=== PATIENT | female | born 1980 | race African-American/Black ===

== ENCOUNTER 2017-06-15 09:49 | Emergency (ER) | payer BC, MEDICAID ==
[2017-06-15] MEDS ORDERED: BUTALB/ACETAMINOPHEN/CAFFEINE 1 TAB EACH PO ONE (10:11)
--- NOTE | 2017-06-15 10:18 | ER Document Report ---
ED Headache - General Chief Complaint: Headache Stated Complaint: HEADACHE/PAIN ON RIGHT SIDE OF FACE Time Seen by Provider: 06/15/17 10:11 TRAVEL OUTSIDE OF THE [place] IN LAST 30 DAYS: No - HPI Patient complains to provider of: Headache Notes: 10 throbbing right-sided headache. Started gradually this morning when she woke up. Patient was at her job today working she felt the pain was too much for her to continue. Denies any focal neuro defect. Denies neck pain, fever, direct trauma to her head. Patient endorses photophobia. Patient has lengthy history of headaches says this feels a one of her classic headaches. Mildly nauseous but denies emesis. - Related Data Allergies/Adverse Reactions: fish oil [Fish Oil] Allergy (Unknown, Verified 06/15/17 10:04) Fish Allergy (Severe, Uncoded 06/15/17 10:04) Hives, swelling Past Medical History - Social History Smoking Status: Never Smoker Chew tobacco use (# tins/day): No Frequency of alcohol use: None Drug Abuse: None Family History: CAD - father, DM - father, Hypertension, Thyroid Disfunction - sister, Other - pacemaker sister Patient has suicidal ideation: No Patient has homicidal ideation: No - Past Medical History Cardiac Medical History: Pulmonary Medical History: Neurological Medical History: Renal/ Medical History: Denies: Hx Peritoneal Dialysis GI Medical History: Musculoskeltal Medical History: Traumatic Medical History: Reports: Hx Pneumothorax Infectious Medical History: Past Surgical History: Reports: Hx Breast Surgery - breast bx, Hx Gynecologic Surgery - tubal. Denies: Hx Pacemaker - Immunizations Immunizations up to date: Yes Hx Diphtheria, Pertussis, Tetanus Vaccination: Yes Review of Systems - Review of Systems Notes: REVIEW OF SYSTEMS: CONSTITUTIONAL: -fevers, -chills EENT: -eye pain, -difficulty swallowing, -nasal congestion CARDIOVASCULAR: -chest pain, -syncope. RESPIRATORY: -cough, -SOB GASTROINTESTINAL: -abdominal pain, -nausea, -vomiting, -diarrhea GENITOURINARY: -dysuria, -hematuria MUSCULOSKELETAL: -back pain, -neck pain SKIN: -rash or skin lesions. HEMATOLOGIC: -easy bruising or bleeding. LYMPHATIC: -swollen, enlarged glands. NEUROLOGICAL: Positive for headache PSYCHIATRIC: -anxiety, -depression. ALL OTHER SYSTEMS REVIEWED AND NEGATIVE. Physical Exam - Notes Notes: PHYSICAL EXAMINATION: GENERAL: Well-appearing, well-nourished and in no acute distress. HEAD: Atraumatic, normocephalic. EYES: Pupils equal round and reactive to light, extraocular movements intact, sclera anicteric, conjunctiva are normal. ENT: nares patent, oropharynx clear without exudates. Moist mucous membranes. NECK: Normal range of motion, supple without lymphadenopathy LUNGS: Breath sounds clear to auscultation bilaterally and equal. No wheezes rales or rhonchi. HEART: Regular rate and rhythm without murmurs ABDOMEN: Soft, nontender, normoactive bowel sounds. No guarding, no rebound. No masses appreciated. EXTREMITIES: Normal range of motion, no pitting or edema. No cyanosis. NEUROLOGICAL: Cranial nerves grossly intact. Normal speech, normal gait. Normal sensory and motor exams. PSYCH: Normal mood, normal affect. SKIN: Warm, Dry, normal turgor, no rashes or lesions noted. Course - Re-evaluation Re-evalutation: 06/15/17 10:25 Well-appearing female, no red flags for headache negative thunderclap, gradual onset appears like a classic headache. No neck tenderness pain no focal neurologic deficits. Will be given analgesia, antiemetics, diphenhydramine. 06/15/17 10:[address], pain-free will be discharged home for Discharge - Discharge Clinical Impression: Headache Qualifiers: Headache type: unspecified Headache chronicity pattern: acute headache Intractability: not intractable Qualified Code(s): R51 - Headache Disposition: HOME, SELF-CARE Instructions: Headache ([facility]) Additional Instructions: See your PCP
[2017-06-15] MEDS ORDERED: METOCLOPRAMIDE HCL INJ/PF 10 MG/2 ML SDV IM ONE (10:23)
[2017-06-15] MEDS ORDERED: DIPHENHYDRAMINE HCL 50 MG CAPSULE PO ONE (10:23)
--- NOTE | 2017-06-15 10:46 | RADIOLOGY REPORT (SQ) ---
EXAM DESCRIPTION: CT HEAD WITHOUT COMPLETED DATE/TIME: 06/15/2017 10:23 am REASON FOR STUDY: pain COMPARISON: None. TECHNIQUE: Axial images acquired through the brain without intravenous contrast. Images reviewed wi th bone, brain and subdural windows. Images stored on PACS. All CT scanners at this facility use dose modulation, iterative reconstruction, and/or weight based d osing when appropriate to reduce radiation dose to as low as reasonably achievable (ALARA). [facility]: Dose Right [facility]: CareDose [facility]: Dose Right [facility]: Teradose 4D [facility]: [employer] RADIATION DOSE: CT Rad equipment meets quality standard of care and radiation dose reduction techniq ues were employed. CTDIvol: 64.6 mGy. DLP: 1292 mGy-cm. mGy. LIMITATIONS: None. FINDINGS: VENTRICLES: Normal size and contour. CEREBRUM: No masses. No hemorrhage. No midline shift. No evidence for acute infarction. Normal gra y/white matter differentiation. No areas of low density in the white matter. CEREBELLUM: No masses. No hemorrhage. No alteration of density. No evidence for acute infarction. EXTRAAXIAL SPACES: No fluid collections. No masses. ORBITS AND GLOBE: No intra- or extraconal masses. Normal contour of globe without masses. CALVARIUM: No fracture. PARANASAL SINUSES: No fluid or mucosal thickening. SOFT TISSUES: No mass or hematoma. OTHER: No other significant finding. IMPRESSION: NORMAL BRAIN CT WITHOUT CONTRAST. EVIDENCE OF ACUTE STROKE: NO. COMMENT: Quality ID # [id number]: Final reports with documentation of one or more dose reduction techniques (e.g., Automated exposure control, adjustment of the mA and/or kV according to patient size, use of iterative reconstruction technique) TECHNICAL DOCUMENTATION: JOB ID: [id number] [employer]- All Rights Reserved Reading location - IP/workstation name: [email or web address]
[2017-06-15 11:06] VITALS: BP 117/67
== END 2017-06-15 11:25 | disposition home or self-care (01) ==
LOC: ER 09:49
DX: R51 Headache (principal); H53.149 Visual discomfort, unspecified; R11.0 Nausea; Z91.013 Allergy to seafood
CPT/HCPCS: 99284; 96372; 70450; J3490; J2765

== ENCOUNTER 2018-09-22 18:34 | Emergency (ER) | payer OTHER ==
[2018-09-22] MEDS ORDERED: IBUPROFEN 800 MG TABLET PO ONE (21:46)
[2018-09-22] MEDS ORDERED: CYCLOBENZAPRINE HCL 10 MG TABLET PO ONE (21:46)
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
[2018-09-22 22:07] VITALS: BP 136/86
== END 2018-09-22 22:07 | disposition home or self-care (01) ==
LOC: ER 18:34
DX: S39.012A Strain of muscle, fascia and tendon of lower back, initial encounter (principal); S29.012A Strain of muscle and tendon of back wall of thorax, initial encounter; R51 Headache; M54.2 Cervicalgia; V43.52XA Car driver injured in collision with other type car in traffic accident, initial encounter; E11.9 Type 2 diabetes mellitus without complications; Z91.013 Allergy to seafood
CPT/HCPCS: 99283

== ENCOUNTER 2018-10-19 08:25 | Emergency (ER) | payer OTHER ==
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
[2018-10-19] MEDS ORDERED: KETOROLAC TROMETHAMINE 60 MG/2 ML SDV IM ONE (09:26)
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
[2018-10-19 11:32] VITALS: BP 138/84
== END 2018-10-19 11:25 | disposition home or self-care (01) ==
LOC: ER 08:25
DX: M54.5 Low back pain (principal); R51 Headache; R11.0 Nausea; V87.7XXA Person injured in collision between other specified motor vehicles (traffic), initial encounter; E11.9 Type 2 diabetes mellitus without complications
CPT/HCPCS: 99283; 96372; 72110; J1885

== ENCOUNTER 2019-02-05 12:40 | Emergency (ER) | payer OTHER ==
[2019-02-05 12:44] VITALS: BP 143/84
--- NOTE | 2019-02-05 12:53 | ER Document Report ---
ED Medical Screen (RME) - General Stated Complaint: LOWER BACK PAIN Time Seen by Provider: 02/05/19 12:49 Primary Care Provider: JUAN CESAR PA-C [Primary Care Provider] - Follow up as needed Mode of Arrival: Ambulatory Information source: Patient Notes: Patient presents with a 2-day history of muscle spasms. Patient states she had spasms to her abdomen yesterday that radiated to her back and then resolved. Patient states today she had spasms in the right lower extremity and that when that stopped the left leg started to have muscle spasms. Patient denies any symptoms at present but is anxious about having the muscle spasms return. I have greeted and performed a rapid initial assessment of this patient. A comprehensive ED assessment and evaluation of the patient, analysis of test results and completion of the medical decision making process will be conducted by additional ED providers. TRAVEL OUTSIDE OF THE [place] IN LAST 30 DAYS: No - Related Data Allergies/Adverse Reactions: fish oil [Fish Oil] Allergy (Unknown, Verified 10/19/18 08:25) Fish Allergy (Severe, Uncoded 10/19/18 08:25) Hives, swelling Past Medical History - Past Medical History Cardiac Medical History: Pulmonary Medical History: Neurological Medical History: Endocrine Medical History: Reports: Hx Diabetes Mellitus Type 2 Renal/ Medical History: Denies: Hx Peritoneal Dialysis GI Medical History: Musculoskeltal Medical History: Traumatic Medical History: Reports: Hx Pneumothorax Infectious Medical History: Past Surgical History: Reports: Hx Breast Surgery - breast bx, Hx Gynecologic Surgery - tubal. Denies: Hx Pacemaker - Immunizations Immunizations up to date: Yes Hx Diphtheria, Pertussis, Tetanus Vaccination: Yes Physical Exam - Vital signs Vitals: Temp Pulse Resp BP Pulse Ox 97.9 F 105 H 18 143/84 H 99 02/05/19 12:43 02/05/19 12:43 02/05/19 12:43 02/05/19 12:43 02/05/19 12:43 - General General appearance: Alert, Anxious - Extremities General upper extremity: Normal inspection, Normal ROM General lower extremity: Normal inspection, Normal ROM Course - Vital Signs Vital signs: Temp Pulse Resp BP Pulse Ox 97.9 F 105 H 18 143/84 H 99 02/05/19 12:43 02/05/19 12:43 02/05/19 12:43 02/05/19 12:43 02/05/19 12:43 Doctor's Discharge - Discharge Referrals: JUAN CESAR PA-C [Primary Care Provider] - Follow up as needed
[2019-02-05 13:26] LABS: ABSOLUTE BASOPHILS # (AUTO) 0.1 10^3/uL (0.0-0.2); ABSOLUTE EOSINOPHILS # (AUTO) 0.4 10^3/uL (0.0-0.6); ABSOLUTE LYMPHOCYTES (AUTO) 1.9 10^3/uL (0.5-4.7); ABSOLUTE MONOCYTES (AUTO) 0.6 10^3/uL (0.1-1.4); ABSOLUTE NEUT (AUTO) 5.5 10^3/uL (1.7-8.2); BASOPHILS % (AUTO) 0.7 % (0-2); EOSINOPHILS % (AUTO) 4.6 % (0-6); HEMATOCRIT 37.7 % (36.0-47.0); HEMOGLOBIN 12.5 g/dL (12.0-15.5); LYMPHOCYTES % (AUTO) 22.1 % (13-45); MEAN CORPUSCULAR HEMOGLOBIN 27.2 pg (27.0-33.4); MEAN CORPUSCULAR VOLUME 82 fl (80-97); MONOCYTES % (AUTO) 7.1 % (3-13); PLATELET COUNT 384 10^3/uL (150-450); RED BLOOD COUNT 4.59 10^6/uL (3.72-5.28); RED CELL DISTRIBUTION WIDTH 15.6 % (11.5-14.0); SEGMENTED NEUTROPHILS % (AUTO) 65.5 % (42-78); TOTAL CELLS COUNTED % (AUTO) 100 %; WHITE BLOOD COUNT 8.5 10^3/uL (4.0-10.5)
[2019-02-05] MEDS ORDERED: DIAZEPAM 5 MG TABLET PO ONE (13:38)
--- NOTE | 2019-02-05 13:42 | ER Document Report ---
ED General - General Chief Complaint: Low Back Pain Stated Complaint: LOWER BACK PAIN Time Seen by Provider: 02/05/19 12:49 Primary Care Provider: JUAN CESAR PA-C [Primary Care Provider] - Follow up as needed Mode of Arrival: Ambulatory Information source: Patient, [facility] Records Notes: 38-year-old female with no reported past medical history presents with complaint of muscle spasm that started 3 days prior to arrival while at rest. Patient reports that on she had a spasm in her right upper quadrant that felt like a "knot" she states this was self resolved but then she began experiencing spasms of her back, legs. Patient also reports a fall off of her front steps approximately 2 weeks ago where she states she landed on her knees and wrists. Denies prior back injury, dysuria, hematuria, urinary frequency, saddle anesthesia, lower extremity weakness, fever, chills, history of IV drug use. Patient is currently asymptomatic but anxious that the spasms will return. TRAVEL OUTSIDE OF THE [place] IN LAST 30 DAYS: No - HPI Onset: Other Onset/Duration: Intermittent Quality of pain: Other - Spasm Severity: Mild Associated symptoms: denies: Chest pain, Productive cough, Diarrhea, Fever, Nausea, Vomiting, Shortness of breath, Weakness Exacerbated by: Movement Relieved by: Denies Similar symptoms previously: No Recently seen / treated by doctor: No - Related Data Allergies/Adverse Reactions: fish oil [Fish Oil] Allergy (Unknown, Verified 10/19/18 08:25) Fish Allergy (Severe, Uncoded 10/19/18 08:25) Hives, swelling Past Medical History - General Information source: Patient - Social History Smoking Status: Never Smoker Frequency of alcohol use: None Drug Abuse: None Lives with: Family Family History: Reviewed & Not Pertinent, CAD - father, DM - father, Hypertension, Thyroid Disfunction - sister, Other - pacemaker sister Patient has suicidal ideation: No Patient has homicidal ideation: No - Medical History Medical History: Negative - Past Medical History Cardiac Medical History: Pulmonary Medical History: Neurological Medical History: Endocrine Medical History: Reports: Hx Diabetes Mellitus Type 2 Renal/ Medical History: Denies: Hx Peritoneal Dialysis GI Medical History: Musculoskeletal Medical History: Traumatic Medical History: Reports: Hx Pneumothorax Infectious Medical History: Past Surgical History: Reports: Hx Breast Surgery - breast bx, Hx Gynecologic Surgery - tubal. Denies: Hx Pacemaker - Immunizations Immunizations up to date: Yes Hx Diphtheria, Pertussis, Tetanus Vaccination: Yes Review of Systems - Review of Systems Notes: REVIEW OF SYSTEMS: CONSTITUTIONAL : Denies fever, chills, or sweats. Denies recent illness. Denies weight loss, recent hospitalizations. EENT: Denies visual changes, eye pain. Denies sore throat, oral lesions, difficulty swallowing. CARDIOVASCULAR: Denies chest pain. Denies palpitations. Denies lower extremity edema. RESPIRATORY: Denies cough. Denies shortness of breath, wheezing. GASTROINTESTINAL: Denies abdominal pain or distention. Denies nausea, vomiting, or diarrhea. Denies blood in vomitus, stools, or per rectum. Denies black, tarry stools. Denies constipation. GENITOURINARY: Denies difficulty urinating, painful urination, frequency, blood in urine, or vaginal discharge. MUSCULOSKELETAL: Denies back or neck pain or stiffness. Denies joint pain or swelling. SKIN: Denies rash, lesions or sores. HEMATOLOGIC : Denies easy bruising or bleeding. LYMPHATIC: Denies swollen glands. NEUROLOGICAL: Denies confusion or altered mental status. Denies loss of consciousness. Denies dizziness or lightheadedness. Denies headache. Denies weakness or paralysis. Denies problems difficulty with ambulation, slurred speech. Denies sensory loss, numbness, or tingling. Denies seizures. PSYCHIATRIC: Denies anxiety or stress. Denies depression, suicidal ideation, or homicidal ideation. Denies visual or auditory hallucinations. Physical Exam - Vital signs Vitals: Temp Pulse Resp BP Pulse Ox 97.9 F 105 H 18 143/84 H 99 02/05/19 12:43 02/05/19 12:43 02/05/19 12:43 02/05/19 12:43 02/05/19 12:43 - Notes Notes: PHYSICAL EXAMINATION: GENERAL: Well-appearing, well-nourished and in no acute distress. HEAD: Atraumatic, normocephalic. EYES: Pupils equal round and reactive to light, extraocular movements intact, conjunctiva are normal. ENT: Nares patent, oropharynx clear without exudates. Moist mucous membranes. NECK: Normal range of motion, supple without lymphadenopathy LUNGS: Breath sounds clear to auscultation bilaterally and equal. No wheezes rales or rhonchi. HEART: Regular rate and rhythm without murmurs ABDOMEN: Soft, nontender, nondistended abdomen. No guarding, no rebound. No masses appreciated. Female : deferred Musculoskeletal: Normal range of motion, no pitting or edema. No cyanosis. NEUROLOGICAL: Cranial nerves grossly intact. Normal speech, normal gait. Normal sensory, motor exams PSYCH: Normal mood, normal affect. SKIN: Warm, Dry, normal turgor, no rashes or lesions noted. Course - Re-evaluation Re-evalutation: 02/05/19 14:49 Laboratory 02/05/19 02/05/19 02/05/19 13:00 13:00 14:05 WBC 8.5 RBC 4.59 Hgb 12.5 Hct 37.7 MCV 82 MCH 27.2 MCHC 33.0 RDW 15.6 H Plt Count 384 Lymph % (Auto) 22.1 [place] % (Auto) 7.1 Eos % (Auto) 4.6 Baso % (Auto) 0.7 Absolute Neuts (auto) 5.5 Absolute Lymphs (auto) 1.9 Absolute Monos (auto) 0.6 Absolute Eos (auto) 0.4 Absolute Basos (auto) 0.1 Seg Neutrophils % 65.5 Sodium 136.9 L Potassium 4.7 Chloride 102 Carbon Dioxide 26 Anion Gap 9 BUN 18 Creatinine 0.97 Est GFR ( Amer) > 60 Est GFR (MDRD) Non-Af > 60 Glucose 115 H Calcium 8.7 Creatine Kinase 133 Urine Color YELLOW Urine Appearance CLEAR Urine pH 8.0 Ur Specific [place] 1.020 Urine Protein NEGATIVE Urine Glucose (UA) NEGATIVE Urine Ketones NEGATIVE Urine Blood NEGATIVE Urine Nitrite NEGATIVE Urine Bilirubin NEGATIVE Urine Urobilinogen NEGATIVE Ur Leukocyte Esterase NEGATIVE Urine WBC (Auto) 1 Urine RBC (Auto) 2 Squamous Epi Cells Auto 1 Urine Mucus (Auto) RARE Urine Ascorbic Acid NEGATIVE Temp Pulse Resp BP Pulse Ox 97.9 F 105 H 18 143/84 H 99 02/05/19 12:43 02/05/19 12:43 02/05/19 12:43 02/05/19 12:43 02/05/19 12:43 38-year-old female presented with intermittent muscle spasms that started 4 days prior to arrival. Vital signs reviewed and within normal limits. Patient does not appear toxic or dehydrated. She is no acute distress. Patient is currently asymptomatic. She does report a fall on her knees a few days ago. CBC shows no leukocytosis or anemia. CMP shows no electrolyte abnormality. Urinalysis not consistent with urinary tract infection. Patient was given p.o. Valium and has not had another episode of spasms since being in the department. She was advised to follow-up with her primary care physician. Patient was evaluated and treated as appropriate for the patient's presenting symptoms and complaint, with consideration of any critical or life threatening conditions that may be associated with their obtained history and exam as noted above. All results were discussed with patient. Patient provided the opportunity to ask questions, and express concerns. Patient was educated on treatments based on their presumed diagnosis as noted above. At this time we will discharge the patient with return precautions and follow-up recommendations. Verbal discharge instructions given a the bedside. Medication warnings reviewed. Patient is in agreement with this plan and has verbalized understanding of return precautions. After careful consideration I feel that that patient can be safely discharged from the emergency department, they were advised to followup with a primary care physician in 2-3 days. Dictation on this chart was performed using voice recognition software and may result in unintended grammatical, spelling, syntax or errors. - Vital Signs Vital signs: Temp Pulse Resp BP Pulse Ox 97.9 F 105 H 18 143/84 H 99 02/05/19 12:43 02/05/19 12:43 02/05/19 12:43 02/05/19 12:43 02/05/19 12:43 - Laboratory Result Diagrams: 02/05/19 13:00 02/05/19 13:00 Laboratory results interpreted by me: 02/05/19 02/05/19 13:00 13:00 RDW 15.6 H Sodium 136.9 L Glucose 115 H Discharge - Discharge Clinical Impression: Muscle spasm Condition: Good Disposition: HOME, SELF-CARE Instructions: Myalagia (Muscle Pain) ([facility]) Additional Instructions: Follow up with your [id number] hours for further care or return to the ED IMMEDIATELY if symptoms worsen or you have any concerns. If you cannot afford to follow up with your primary care physician a list of low cost clinics have been provided at the end of your discharge papers as well. Most prescribed medications have multiple side effects. The safest thing to do is when filling your prescription speak to your pharmacist regarding possible interactions with your normal home medications and over the counter medications such as Ibuprofen, Tylenol, Benadryl. If you experience any symptoms that cause you discomfort or concern you should discontinue the medication immediately and return to the emergency room or call your primary care physician. Prescriptions: Diazepam [Valium 5 mg Tablet] 5 mg PO Q8H PRN #10 tablet PRN Reason: Muscle Spasms Forms: Elevated Blood Pressure Referrals: JUAN CESAR PA-C [Primary Care Provider] - Follow up in 3-5 days
[2019-02-05 13:46] LABS: ANION GAP 9 (5-19); BLOOD UREA NITROGEN 18 mg/dL (7-20); CALCIUM 8.7 mg/dL (8.4-10.2); CARBON DIOXIDE 26 mmol/L (22-30); CHLORIDE 102 mmol/L (98-107); CREATINE KINASE 133 U/L (30-135); GLUCOSE 115 mg/dL (75-110); POTASSIUM 4.7 mmol/L (3.6-5.0)
[2019-02-05 14:26] LABS: APPEARANCE,URINE CLEAR; BILIRUBIN,URINE NEGATIVE (NEGATIVE); COLOR,URINE YELLOW; GLUCOSE, URINE NEGATIVE (NEGATIVE); KETONES,URINE NEGATIVE (NEGATIVE); LEUKOCYTE ESTERASE,URINE NEGATIVE (NEGATIVE); NITRITE,URINE NEGATIVE (NEGATIVE); PROTEIN,URINE NEGATIVE (NEGATIVE); UROBILINOGEN,URINE NEGATIVE mg/dL (<2.0)
[2019-02-05] MEDS ORDERED: KETOROLAC TROMETHAMINE 60 MG/2 ML SDV IM ONE (15:40)
== END 2019-02-05 16:50 | disposition home or self-care (01) ==
LOC: ER 12:40
DX: M62.830 Muscle spasm of back (principal); M54.5 Low back pain; W10.9XXA Fall (on) (from) unspecified stairs and steps, initial encounter; E11.9 Type 2 diabetes mellitus without complications
CPT/HCPCS: 36415; 80048; 81001; 82550; 85025; 99284

== ENCOUNTER → 2019-06-04 | Outpatient (CLI) | payer OTHER ==
[2019-06-04 10:15] LABS: ABSOLUTE EOSINOPHILS # (AUTO) 0.3 10^3/uL (0.0-0.6); ABSOLUTE LYMPHOCYTES (AUTO) 1.5 10^3/uL (0.5-4.7); ABSOLUTE MONOCYTES (AUTO) 0.4 10^3/uL (0.1-1.4); ABSOLUTE NEUT (AUTO) 3.5 10^3/uL (1.7-8.2); BASOPHILS % (AUTO) 0.5 % (0-2); EOSINOPHILS % (AUTO) 4.9 % (0-6); HEMATOCRIT 35.1 % (36.0-47.0); HEMOGLOBIN 11.8 g/dL (12.0-15.5); LYMPHOCYTES % (AUTO) 25.8 % (13-45); MEAN CORPUSCULAR HEMOGLOBIN 27.6 pg (27.0-33.4); MEAN CORPUSCULAR HGB CONC 33.6 g/dL (32.0-36.0); MEAN CORPUSCULAR VOLUME 82 fl (80-97); MONOCYTES % (AUTO) 6.7 % (3-13); PLATELET COUNT 357 10^3/uL (150-450); RED BLOOD COUNT 4.25 10^6/uL (3.72-5.28); RED CELL DISTRIBUTION WIDTH 15.7 % (11.5-14.0); SEGMENTED NEUTROPHILS % (AUTO) 62.1 % (42-78); TOTAL CELLS COUNTED % (AUTO) 100 %; WHITE BLOOD COUNT 5.7 10^3/uL (4.0-10.5)
[2019-06-04 10:32] LABS: ALBUMIN 3.3 g/dL (3.5-5.0); ALKALINE PHOSPHATASE 79 U/L (38-126); ANION GAP 5 (5-19); ASPARTATE AMINO TRANSFERASE 21 U/L (14-36); BILIRUBIN,DIRECT 0.3 mg/dL (0.0-0.4); BILIRUBIN,TOTAL 0.4 mg/dL (0.2-1.3); BLOOD UREA NITROGEN 13 mg/dL (7-20); CALCIUM 8.9 mg/dL (8.4-10.2); CARBON DIOXIDE 30 mmol/L (22-30); CHLORIDE 106 mmol/L (98-107); CHOLESTEROL 174.96 mg/dL (0-200); GLUCOSE 95 mg/dL (75-110); IRON(TIBC) 53.2 ug/dL (37-170); TOTAL PROTEIN 6.6 g/dL (6.3-8.2); TRIGLYCERIDES 67 mg/dL (<150)
[2019-06-04 10:47] LABS: DIRECT LDL 100 mg/dL (<100)
[2019-06-04 11:09] LABS: FERRITIN 5.58 ng/mL (6.2-137.0)
== END ==
LOC: OD 08:55
PROVIDERS: ATTEND Family Medicine
DX: E55.9 Vitamin D deficiency, unspecified (principal); D50.0 Iron deficiency anemia secondary to blood loss (chronic); Z87.898 Personal history of other specified conditions; Z86.39 Personal history of other endocrine, nutritional and metabolic disease
CPT/HCPCS: 36415; 80053; 80061; 82306; 82728; 83036; 83540; 83550; 84443; 85025

== ENCOUNTER → 2019-09-06 | Outpatient (CLI) | payer OTHER ==
--- NOTE | 2019-09-06 09:10 | RADIOLOGY REPORT (SQ) ---
EXAM DESCRIPTION: LUMBAR SPINE 2 VIEWS IMAGES COMPLETED DATE/TIME: 09/06/2019 8:56 am REASON FOR STUDY: LUMBAGO WITH SCIATICA, LEFT SIDE M54.42 LUMBAGO WITH SCIATICA, LEFT SIDE COMPARISON: AP, lateral and oblique views of the lumbar spine from 10/19/2018. NUMBER OF VIEWS: Two views. TECHNIQUE: AP and lateral radiographic images acquired of the lumbar spine. LIMITATIONS: None. FINDINGS: MINERALIZATION: Normal. SEGMENTATION: There are 5 lumbar-type vertebral bodies. ALIGNMENT: No scoliotic curvature or spondylolisthesis. VERTEBRAE: Intact. There is no fracture. DISCS: The intervertebral disc spaces are preserved. There is no endplate irregularity or osteophyte formation. POSTERIOR ELEMENTS: Intact. HARDWARE: None in the spine. PARASPINAL SOFT TISSUES: No radiographic abnormality. PELVIS: Intact. OTHER: No other finding. IMPRESSION: No acute osseous abnormality of the lumbar spine. TECHNICAL DOCUMENTATION: JOB ID: [id number] 2010 [employer]- All Rights Reserved Reading location - IP/workstation name: [email or web address]
== END ==
LOC: OD 08:42
PROVIDERS: ATTEND Family Medicine
DX: M54.42 Lumbago with sciatica, left side (principal)
CPT/HCPCS: 72100

== ENCOUNTER 2019-09-10 00:59 | Emergency (ER) | payer OTHER ==
[2019-09-10 01:04] VITALS: BP 150/91
== END 2019-09-10 05:00 | disposition left against medical advice (07) ==
LOC: ER 00:59
DX: Z53.21 Procedure and treatment not carried out due to patient leaving prior to being seen by health care provider (principal)